=== PATIENT | male | born 1950 | race African-American/Black ===

== ENCOUNTER 2022-04-14 09:51 | Emergency (ER) | payer MEDICARE, OTHER ==
[~2022-04-14] VITALS: Ht 172.7 cm; Wt 79.0 kg
[~2022-04-14 09:51] MED LIST: HYDR-4009 MT; LOSA50TA41 MT; METF-416 PO
[2022-04-14 12:01] LABS: CHLORIDE 99 mEq/L (98-107)
[2022-04-14 12:02] LABS: BASOPHILS % 1.1 % (0.0-2.0); EOSINOPHILS % 1.5 % (0.0-5.0); HEMATOCRIT. 29.5 % (42.0-52.0); HEMOGLOBIN. 9.7 g/dL (14.0-18.0); LYMPHOCYTES % 15.8 % (20.0-50.0); MEAN CORPUSCULAR HEMOGLOBIN 26.2 pg (28.0-32.0); MEAN CORPUSCULAR VOLUME 79.1 fL (80.0-94.0); MEAN PLATELET VOLUME 7.4 fl (7.4-10.4); NEUTROPHILS % 70.6 % (40.0-76.0); PLATELET 570 x1000/uL (130-400); RED BLOOD CELL COUNT 3.73 mill/uL (4.7-6.1); RED CELL DISTRIBUTION WIDTH 14.9 % (11.6-14.6)
[2022-04-14] MEDS ORDERED: MED4 MT (12:54)
[2022-04-14] MEDS ORDERED: PREDNISONE 20MG TABLET PO SCH (13:00)
[2022-04-14] MEDS ORDERED: HYDROCODONE/ACETAMINOPHEN 5/325MG TABLET PO NR (13:00)
[2022-04-14 14:31] VITALS: BP 128/83
== END 2022-04-14 14:59 | disposition home or self-care (01) ==
LOC: ER 09:51
DX: M10.9 Gout, unspecified (principal); R60.9 Edema, unspecified; I10 Essential (primary) hypertension; J45.909 Unspecified asthma, uncomplicated; E11.9 Type 2 diabetes mellitus without complications; Z88.6 Allergy status to analgesic agent; Z90.49 Acquired absence of other specified parts of digestive tract
CPT/HCPCS: 36415; 71045; 80053; 83880; 84484; 85025; 93970; 99285; J7512

== ENCOUNTER 2022-06-19 01:51 | Emergency (ER) | payer MEDICARE, MEDICAID ==
[~2022-06-19] VITALS: Ht 170.2 cm; Wt 76.0 kg
[~2022-06-19 01:51] MED LIST changes: +MED4 MT
[2022-06-19 03:54] LABS: BASOPHILS % 0.8 % (0.0-2.0); EOSINOPHILS % 0.1 % (0.0-5.0); HEMATOCRIT. 28.3 % (42.0-52.0); HEMOGLOBIN. 9.2 g/dL (14.0-18.0); LYMPHOCYTES % 8.9 % (20.0-50.0); MEAN CORPUSCULAR HEMOGLOBIN 25.8 pg (28.0-32.0); MEAN CORPUSCULAR VOLUME 79.3 fL (80.0-94.0); MEAN PLATELET VOLUME 7.3 fl (7.4-10.4); MONOCYTES % 10.6 % (2.0-8.0); NEUTROPHILS % 79.6 % (40.0-76.0); PLATELET 430 x1000/uL (130-400); RED BLOOD CELL COUNT 3.57 mill/uL (4.7-6.1); RED CELL DISTRIBUTION WIDTH 17.5 % (11.6-14.6)
[2022-06-19 04:04] LABS: CHLORIDE 102 mEq/L (98-107)
[2022-06-19 04:23] LABS: INR 1.1; PARTIAL THROMBOPLASTIN TIME 32.8 sec (23.4-31.0); PROTHROMBIN TIME 11.9 sec (9.6-11.0)
[2022-06-19] MEDS ORDERED: ONDANSETRON 4MG ODT PO ONE (06:00)
[2022-06-19] MEDS ORDERED: HYDROCODONE/ACETAMINOPHEN 5/325MG TABLET PO ONE ×2 (06:00→10:15)
[2022-06-19] MEDS ORDERED: LOSARTAN POTASSIUM 50 MG TABLET PO SCH (09:00)
[2022-06-19] MEDS ORDERED: HYDR-4001 MT (10:35)
[2022-06-19 11:54] VITALS: BP 196/103
== END 2022-06-19 17:39 | disposition home or self-care (01) ==
LOC: ER 01:51
DX: S16.1XXA Strain of muscle, fascia and tendon at neck level, initial encounter (principal); R51.9 Headache, unspecified; V49.49XA Driver injured in collision with other motor vehicles in traffic accident, initial encounter; Y93.89 Activity, other specified; Y92.89 Other specified places as the place of occurrence of the external cause; Y99.8 Other external cause status; M79.601 Pain in right arm; M25.571 Pain in right ankle and joints of right foot; I10 Essential (primary) hypertension; J45.909 Unspecified asthma, uncomplicated; E11.9 Type 2 diabetes mellitus without complications; Z90.49 Acquired absence of other specified parts of digestive tract; Z79.899 Other long term (current) drug therapy
CPT/HCPCS: 36415; 71045; 72170; 73030; 73080; 73130; 73610; 80053; 85025; 86850; 86900; 99285; A4565

== ENCOUNTER 2022-06-20 00:28 | Emergency (ER) | payer MEDICARE, OTHER ==
[~2022-06-20] VITALS: Ht 172.7 cm; Wt 80.0 kg
[~2022-06-20 00:28] MED LIST changes: +HYDR-4001 MT
[2022-06-20] MEDS ORDERED: MORPHINE SULFATE 4 MG/ML CPJ (NOT FOR IM USE) IV ONE (08:15)
[2022-06-20 08:41] VITALS: BP 140/80
== END 2022-06-20 09:30 | disposition home or self-care (01) ==
LOC: ER 00:28
DX: M25.512 Pain in left shoulder (principal); M19.90 Unspecified osteoarthritis, unspecified site; I10 Essential (primary) hypertension; E11.9 Type 2 diabetes mellitus without complications; Z90.49 Acquired absence of other specified parts of digestive tract; Z79.84 Long term (current) use of oral hypoglycemic drugs; Z88.6 Allergy status to analgesic agent
CPT/HCPCS: 96374; 99283; J2270